=== PATIENT | male | born 1975 | race African-American/Black ===

== ENCOUNTER 2017-06-15 12:36 | Inpatient (IN) | payer OTHER ==
[~2017-06-15] VITALS: Ht 190.5 cm; Wt 86.2 kg
[2017-06-15 12:37] VITALS: BP 126/85
[2017-06-15 12:58] LABS: ABSOLUTE NEUTROPHILS 10.5 thou/uL (1.4-8.2); BASOPHILS 0.4 % (0.0-2.0); EOSINOPHILS 1.2 % (0.0-3.0); HEMOGLOBIN 13.4 gm/dL (14.0-18.0); LYMPHOCYTES 16.9 % (24.0-44.0); MCH 29.8 pg (26.0-34.0); MCHC 32.8 g/dL (28.0-37.0); PLATELET COUNT 322 thou/uL (150-400); POLYS 74.5 % (36.0-66.0); RBC 4.51 mil/uL (4.50-6.00); RDW 14.8 % (10.5-14.5); WBC 14.1 thou/uL (4.0-11.0)
[2017-06-15 12:59] LABS: MANUAL DIFF NO
[2017-06-15 13:07] LABS: CALCIUM 9.1 mg/dL (8.5-10.1); CREATININE 0.8 mg/dL (0.7-1.3); POTASSIUM 4.1 mmol/L (3.5-5.1)
[2017-06-15 13:12] LABS: ALBUMIN 2.8 g/dL (3.4-5.0); TOTAL BILIRUBIN 0.6 mg/dL (<0.1-1.0); TOTAL PROTEIN 7.5 g/dL (6.4-8.2)
[2017-06-15 14:03] LABS: URINE BILIRUBIN NEGATIVE (Negative); URINE BLOOD 3+ (Negative); URINE COLOR RED; URINE GLUCOSE-RANDOM* 1+ (Negative); URINE KETONES NEGATIVE (Negative); URINE LEUKOCYTES-REFLEX TRACE (Negative); URINE PROTEIN (DIPSTICK) 3+ (Negative); URINE SPECIFIC GRAVITY 1.015 (1.003-1.035); URINE UROBILINOGEN 0.2 E.U./dl (0.2-1.0)
[2017-06-15 14:06] LABS: CASTS None Seen /LPF (None Seen); SQUAMOUS None Seen /LPF (0-3); URINE WBC-REFLEX 0-5 Rare /HPF (0-5)
[2017-06-15 14:07] LABS: CRYSTALS None Seen /LPF (None Seen); URINE RBC >20 Many /HPF (0-2)
[2017-06-15 14:18] LABS: APTT 26.4 Seconds (24.5-32.8); INR 1.1; PROTIME 11.7 Seconds (9.3-11.4)
[2017-06-15 16:47] VITALS: BP 117/80
[2017-06-15] MEDS ORDERED: DUONEB 2.5-0.5 M3 ML INH (18:07)
[2017-06-15] MEDS ORDERED: COLACE100 MG PER TUBE (18:08)
[2017-06-15] MEDS ORDERED: PERIDEX15 ML MM (18:08)
[2017-06-15] MEDS ORDERED: PEPCID20 MG PER TUBE (18:09)
[2017-06-15] MEDS ORDERED: REGLAN 10 MG TA10 MG IV (18:10)
[2017-06-15] MEDS ORDERED: HEPARIN 5,5000 UNIT1 IV (18:10)
[2017-06-15] MEDS ORDERED: ROXICODONE15 M1 PER TUBE (18:10)
[2017-06-15] MEDS ORDERED: PROPRANOLOL 1010 MG PER TUBE (18:11)
[2017-06-15] MEDS ORDERED: PIPERACIL-TA3.375 G1 IV (18:14)
[2017-06-15] MEDS ORDERED: VANCO1GM IV (18:14)
[2017-06-15] MEDS ORDERED: ERYTHROMYCIN E3.5 G1 OPHTHALMIC (18:15)
[2017-06-15 20:49] VITALS: BP 119/78
[2017-06-16 03:23] VITALS: BP 108/79
[2017-06-16 05:16] LABS: HEMATOCRIT 37.8 % (42.0-52.0); HEMOGLOBIN 12.8 gm/dL (14.0-18.0); MCH 30.6 pg (26.0-34.0); MCHC 33.8 g/dL (28.0-37.0); MCV 90.6 fL (80.0-100.0); RBC 4.17 mil/uL (4.50-6.00); RDW 14.8 % (10.5-14.5); WBC 12.3 thou/uL (4.0-11.0)
[2017-06-16 05:36] LABS: CALCIUM 8.8 mg/dL (8.5-10.1); CREATININE 0.6 mg/dL (0.7-1.3); POTASSIUM 4.4 mmol/L (3.5-5.1)
[2017-06-16 08:03] VITALS: BP 128/88
[2017-06-16 11:43] VITALS: BP 113/75
[2017-06-16 16:01] VITALS: BP 125/78
[2017-06-16 20:49] VITALS: BP 117/72
[2017-06-17 04:02] VITALS: BP 116/63
[2017-06-17 07:05] VITALS: BP 124/68
[2017-06-17 08:57] LABS: ABG SAMPLE TYPE ARTERIAL; BE(vivo) 4.6 mmol/L (-2 to +3); HCO3 27.3 mmol/L (22.0-26.0); LACTATE 1.75 mmol/L (0.5-2.0); O2(CT) 14.5 mL/dL (15.0-23.0); O2Hb 94.4 % (92.0-98.0); PCO2 34.1 mmHg (35.0-45.0); PO2 76.3 mmHg (80.0-100.0); pH 7.522 (7.360-7.450); sO2 96.5 % (92.0-98.0); tCO2 28.4 mmol/L (24.0-30.0)
[2017-06-17 08:58] LABS: ABG COMMENT 50% TRACH SHIELD; STICK SITE L.RADIAL
[2017-06-17 09:35] LABS: ABSOLUTE NEUTROPHILS 7.6 thou/uL (1.4-8.2); BASOPHILS 0.2 % (0.0-2.0); EOSINOPHILS 0.2 % (0.0-3.0); HEMATOCRIT 28.8 % (42.0-52.0); LYMPHOCYTES 18.9 % (24.0-44.0); MCH 31.3 pg (26.0-34.0); MCHC 34.2 g/dL (28.0-37.0); MCV 91.6 fL (80.0-100.0); MONOCYTES 7.1 % (1.0-8.0); POLYS 73.6 % (36.0-66.0); RBC 3.14 mil/uL (4.50-6.00); RDW 14.5 % (10.5-14.5); WBC 10.3 thou/uL (4.0-11.0)
[2017-06-17 09:36] LABS: HEMOGLOBIN 9.8 gm/dL (14.0-18.0)
[2017-06-17 09:37] LABS: MANUAL DIFF NO
[2017-06-17 09:51] LABS: CREATININE 0.6 mg/dL (0.7-1.3); POTASSIUM 3.4 mmol/L (3.5-5.1)
[2017-06-17 09:56] LABS: ALBUMIN 2.2 g/dL (3.4-5.0); TOTAL BILIRUBIN 0.4 mg/dL (<0.1-1.0)
[2017-06-17 10:27] LABS: LARGE PLATELETS FEW; PLATELET COUNT 188 thou/uL (150-400)
[2017-06-17 12:05] VITALS: BP 132/76
[2017-06-17 20:41] VITALS: BP 128/68
[2017-06-18 04:06] VITALS: BP 111/57
[2017-06-18 07:08] VITALS: BP 124/64
[2017-06-18 11:00] VITALS: BP 117/62
[2017-06-18 16:14] VITALS: BP 130/71
[2017-06-18 19:20] VITALS: BP 115/59
[2017-06-19 04:10] VITALS: BP 125/75
[2017-06-19 07:56] VITALS: BP 108/57
[2017-06-19 12:02] VITALS: BP 116/70
[2017-06-19] MEDS ORDERED: ZYVOX600 MG/300 IVPB (15:12)
[2017-06-19] MEDS ORDERED: MEROPENEM500 MG IV (15:12)
[2017-06-19 15:54] VITALS: BP 130/78
== END 2017-06-19 20:10 | DRG 871 ==
LOC: ER 12:36 → EROBS 14:45 → 4W 14:45
PROVIDERS: Internal Medicine; Physician Assistant
DX: A41.9 Sepsis, unspecified organism (principal); J18.9 Pneumonia, unspecified organism; N39.0 Urinary tract infection, site not specified; G82.20 Paraplegia, unspecified; S02.91XA Unspecified fracture of skull, initial encounter for closed fracture; S06.9X9A Unspecified intracranial injury with loss of consciousness of unspecified duration, initial encounter; X58.XXXA Exposure to other specified factors, initial encounter; K56.41 Fecal impaction; R31.9 Hematuria, unspecified; Y93.89 Activity, other specified; Y92.89 Other specified places as the place of occurrence of the external cause; Y99.8 Other external cause status; Z79.899 Other long term (current) drug therapy; Z93.0 Tracheostomy status
CPT/HCPCS: 10045; 50454